=== PATIENT | male | born 1965 ===

== ENCOUNTER 2018-04-24 14:58 | Emergency (ER) | payer OTHER ==
--- NOTE | 2018-04-24 15:58 | ED GENERAL ADULT ---
History of Present Illness General Chief Complaint: ETOH/Drug Related Complaint Stated Complaint: SENT BY [facility] FOR CLEARANCE Source: patient Exam Limitations: no limitations Allergies Coded Allergies: No Known Allergies (04/24/18) Triage Note: PT SENT FROM [facility] TO BE ADMITTED MEDICALLY FOR CONFIRMED CDIFF INFECTION. SEEN AT [facility] ON 04/22 FOR WATERY DIARRHEA AND CULTURE CAME BACK + FOR CDIFF. PT DENIES ABD PAIN. Triage Nurses Notes Reviewed? yes HPI: This is a 53-year-old male with history of alcoholism complicated by alcoholic liver disease presenting from [facility] for evaluation following positive C. difficile assay in the setting of several days of diarrhea. Patient states he has been eating well, denies any lightheadedness, fever, chills, abdominal pain, vomiting. He has been compliant with the [facility] regimen with no complaints. He denies any recent antibiotics or other obvious trigger of his C. difficile. He has no history of C. difficile. (Bg Navarro MD) Vital Signs & Intake/Output Vital Signs & Intake/Output Vital Signs Date Time Temp Pulse Resp B/P B/P Pulse O2 O2 Flow FiO2 Mean Ox Delivery Rate 04/24 2016 99.0 90 18 135/86 04/24 2016 99.0 90 18 135/86 96 Room Air 04/24 1748 99.0 94 16 131/96 98 Room Air 04/24 1516 99.8 97 16 128/86 98 Room Air Reconcile Medications Metronidazole (Flagyl) 500 MG TABLET 1 TAB PO Q8 c-diff (Zack Arredondo DO) Past History Travel History Traveled to [place] past 21 day No Medical History Any Pertinent Medical History? see below for history Gastrointestinal: CDIFF LIVER DISEASE Psychiatric: ALCOHOL ABUSE BIPOLAR DISEASE Surgical History Surgical History: non-contributory Psychosocial History What is your primary language Citizen Of [place] Tobacco Use: Never used ETOH Use: alcoholic Illicit Drug Use: denies illicit drug use Family History Hx Contributory? No (Bg Navarro MD) Review of Systems Review of Systems Constitutional: Reports: no symptoms. EENTM: Reports: no symptoms. Respiratory: Reports: no symptoms. Cardiovascular: Reports: no symptoms. GI: Reports: see HPI. Musculoskeletal: Reports: no symptoms. Skin: Denies: change in skin color. Neurological/Psychological: Reports: no symptoms. Hematologic/Endocrine: Reports: no symptoms. Immunologic/Allergic: Reports: no symptoms. Comments Nonbloody, watery diarrhea 4 days. Patient states that he has chronic jaundice and scleral icterus, unchanged from baseline. (Bg Navarro MD) Physical Exam Physical Exam General Appearance: well developed/nourished, no apparent distress, alert, awake , comfortable Head: atraumatic, normal appearance Ears, Nose, Throat: normal pharynx, normal ENT inspection Neck: normal inspection, supple, full range of motion Respiratory: normal breath sounds, chest non-tender, no respiratory distress, lungs clear Cardiovascular: regular rate/rhythm, normal peripheral pulses Gastrointestinal: normal bowel sounds, soft, non-tender Back: normal inspection, normal range of motion Extremities: normal inspection, normal capillary refill, normal range of motion Neurologic/Psych: no motor/sensory deficits, awake, alert, oriented x 3, normal gait, normal mood/affect Core Measures ACS in differential dx? No CVA/TIA Diagnosis: No Sepsis Present: No Sepsis Focused Exam Completed? No (Bg Navarro MD) Progress Differential Diagnoses I considered the following diagnoses in my evaluation of the patient: Clinically suspect new onset C. difficile in this patient given positive test, low suspicion for severe metabolic derangement. Patient appears to have ongoing alcoholic liver disease, however does not have any obvious decompensation based on exam and history. Initial ED EKG: none (Bg Navarro MD) Differential Diagnoses I considered the following diagnoses in my evaluation of the patient: Plan of Care: Orders Procedure Date/time Status Regular Diet 04/24 D Active CIWA 04/24 151 Active URINE DRUGS OF ABUSE 04/24 151 Complete PHOSPHORUS 04/24 151 Complete MAGNESIUM 04/24 151 Complete ETHANOL 04/24 1517 Complete COMPREHENSIVE METABOLIC PANEL 04/24 151 Complete CBC WITHOUT DIFFERENTIAL 04/24 151 Complete Laboratory Tests 04/24/18 1610: Anion Gap 8, Estimated GFR > 60, BUN/Creatinine Ratio 12.5, Glucose 108 H, Calcium 8.3 L, Phosphorus 3.0, Magnesium 2.2, Total Bilirubin 18.8 H, AST 136 H, ALT 93 H, Alkaline Phosphatase 204 H, Total Protein 6.6, Albumin 3.2 L, Globulin 3.4, Albumin/Globulin Ratio 0.9 L, CBC w Diff MAN DIFF ORDERED, RBC 3.80 L, MCV 99.4 H, MCH 34.2 H, MCHC 34.4, RDW 16.7 H, MPV 8.2, Segmented Neutrophils 82 H, Band Neutrophils 1, Lymphocytes 13 L, Monocytes 3, Eosinophils 1, Nucleated RBCs 1 H, Platelet Estimate ADEQUATE, Normochromic RBCs VERIFIED, Anisocytosis 1+, Macrocytic Cells FEW, Serum Alcohol < 10.0 04/24/18 1535: Urine Opiates Screen < 100, Methadone Screen < 40, Barbiturate Screen 321 H, Ur Phencyclidine Scrn < 6.00, Amphetamines Screen < 100, U Benzodiazepines Scrn > 800 H, Urine Cocaine Screen < 50, Urine Cannabis Screen < 5.00 Microbiology 04/24 1517 STOOL: Cryptosporidium Antigen - CAN Cancelled: SPECIMENS NEVER RECEIVED. PATIENT DEPARTED [facility] 04/24 1517 STOOL: Giardia Antigen (ALBIN) - CAN Cancelled: SPECIMENS NEVER RECEIVED. PATIENT DEPARTED [facility] 04/24 1517 STOOL: Clostridium difficile Toxin A & B - CAN Cancelled: SPECIMENS NEVER RECEIVED. PATIENT DEPARTED [facility] 04/24 1517 STOOL: Stool Culture - CAN Cancelled: SPECIMENS NEVER RECEIVED. PATIENT DEPARTED [facility] Labs show evidence of ongoing chronic liver disease with a benign reassessment and no evidence of acute decompensation. We will start p.o. Flagyl. Unfortunately, patient is unable to return to [facility] given that he has active C. difficile. We will provide 14-day course of p.o. Flagyl for home with plan for outpatient follow-up and return precautions. Patient is specifically told that he needs to avoid mixing Flagyl and alcohol given the risk of a disulfiram-like reaction. (Bg Navarro MD) (Zack Arredondo DO) Departure Departure Time of Disposition: 1803 Disposition: HOME OR SELF CARE Condition: Stable Clinical Impression Primary Impression: C. difficile diarrhea Referrals: Johnnie Gonzalez MD (PCP/Family) Additional Instructions: Thank you for coming to [facility] today. Please take your medication as prescribed. As we discussed, it is very important that you do not mix Flagyl/ metronidazole with any alcohol. This could cause an unsafe reaction. Please follow-up with your primary doctor and return to the emergency department if your symptoms worsen or you develop any new or worsening symptoms such as vomiting or severe abdominal pain or lightheadedness. Departure Forms: Customer Survey General Discharge Information Prescriptions: Current Visit Scripts Metronidazole (Flagyl) 1 TAB PO Q8 #42 TAB (Bg Navarro MD) Resident Co-Sign Statement Statement: ED Attending supervision documentation- [X] I saw and evaluated the patient. I have also reviewed all the pertinent lab results and diagnostic results. I agree with the findings and the plan of care as documented in the Resident's documentation. [] I have reviewed the ED Record and agree with the Resident's documentation. [] Additions or exceptions (if any) to the Resident's note and plan are summarized below: [] 03/24/18 7:02 I have seen and examined the patient and explained his plan of care including follow up with [facility] once he has completed the course of antibiotics, and test negative It was also stressed to him the importance of refraining from alcohol. (Arnulfo VERGARA,Zack Pham) Critical Care Note Critical Care Note Critical Care Time: non-applicable (Ramon AMARO,Bg)
[2018-04-24 16:26] LABS: HEMATOCRIT 37.7 % (42-52); MEAN CORPUSCULAR HGB 34.2 PG (27.0-31.0); MEAN CORPUSCULAR HGB CONC 34.4 G/DL (33.0-37.0); MEAN CORPUSCULAR VOLUME 99.4 FL (80.0-94.0); MEAN PLATELET VOLUME 8.2 FL (7.4-10.4); PLATELET COUNT 431 /CUMM (130-400); RBC DISTRIBUTION WIDTH 16.7 % (11.5-14.5); WHITE BLOOD CELL COUNT 15.4 /CUMM (4.8-10.8)
[2018-04-24] MEDS ORDERED: FLAGYL500 MG PO (18:06)
[2018-04-24 20:16] VITALS: BP 135/86
== END 2018-04-24 20:44 ==
LOC: ERH 14:58
PROVIDERS: Physician Assistant
DX: B96.89 Other specified bacterial agents as the cause of diseases classified elsewhere (principal); F31.9 Bipolar disorder, unspecified
CPT/HCPCS: 80307; 87015; 87045; 87328; 87329; 87899; 87899-59; G0480